=== PATIENT | male | born 2000 | race Caucasian/White ===

== ENCOUNTER 2020-04-15 16:44 | Emergency (ER) | payer OTHER ==
[2020-04-15] MEDS ORDERED: PENICILLIN V POTASSIUM 500 MG TABLET PO ONE (17:22)
--- NOTE | 2020-04-15 17:28 | ER Document Report ---
ED Oral Problem - General Chief Complaint: Mouth Problem Stated Complaint: NECK PAIN/MOUTH PAIN Time Seen by Provider: 04/15/20 17:21 Mode of Arrival: Ambulatory Notes: 20-year-old male presented to ED for discomfort in the throat about this started about 2-1/2 months ago. He states it slowly got better than a week later came back again he was told to use mouthwash. He states he got better and then came back again so he went to a dental clinic and they said it was salivary stones and that it should clear up on its own. He states then the COVID pandemic started and he was signing out of the [employer] and he did not go back into check it. He states a day or 2 ago it started again he now has a swollen area under the right side of his tongue. He states at times is uncomfortable but is is not very painful. He states it does affect his chewing. He states he does have a little swelling to his lymph nodes on the right side. He states he is getting ready to have a baby and is very concerned that he is having throat cancer because he is a former smoker and he did chew tobacco and now is afraid that he is developing a cancer. I did consult Dr. Colon who came and looked at his mouth. He states it did look like a salivary gland that is inside of his mouth. He states sometimes when to go to the dentist they may have to talk to him or problem to get the stones or fluid out. He states he should go back to a dentist and get rechecked. He did recommend antibiotics while in the emergency room and a prescription. - HPI Patient complains to provider of: Other - Swollen gland under the right side of his tongue Onset: Other - See HPI Onset: Gradual - See HPI Quality of pain: Other - Uncomfortable at times Severity: Mild Pain Level: 1 Associated symptoms: Other Worsened by: Other - Gland under the right side of his tongue Relieved by: Nothing Similar symptoms previously: Yes Recently seen / treated by doctor/dentist: No - Related Data Allergies/Adverse Reactions: No Known Allergies Allergy (Verified 04/15/20 17:06) Past Medical History - General Information source: Patient - Social History Smoking Status: Former Smoker - States he is a former smoker and former chewer but no longer smokes or chews tobacco Frequency of alcohol use: None Drug Abuse: None Lives with: Family Family History: Reviewed & Not Pertinent Patient has homicidal ideation: No - Past Medical History Cardiac Medical History: Reports: None Pulmonary Medical History: Reports: None EENT Medical History: Reports: None Neurological Medical History: Reports: None Endocrine Medical History: Reports: None Renal/ Medical History: Reports: None Malignancy Medical History: Reports None GI Medical History: Reports: None Musculoskeletal Medical History: Reports None Skin Medical History: Reports None Psychiatric Medical History: Reports: None Traumatic Medical History: Reports: None Infectious Medical History: Reports: None Surgical Hx: Negative Past Surgical History: Reports: None - Immunizations Immunizations up to date: Yes Hx Diphtheria, Pertussis, Tetanus Vaccination: Yes Review of Systems - Review of Systems Constitutional: No symptoms reported EENT: Mouth pain - Tonsil stones, Other - Swollen gland under his right side of his tongue Cardiovascular: No symptoms reported Respiratory: No symptoms reported Gastrointestinal: No symptoms reported Genitourinary: No symptoms reported Male Genitourinary: No symptoms reported Musculoskeletal: No symptoms reported Skin: No symptoms reported Hematologic/Lymphatic: No symptoms reported Neurological/Psychological: No symptoms reported -: Yes All other systems reviewed and negative Physical Exam - Vital signs Vitals: Temp Pulse Resp BP Pulse Ox 99.7 F 105 H 20 150/90 H 98 04/15/20 17:00 04/15/20 17:00 04/15/20 17:00 04/15/20 17:00 04/15/20 17:00 Interpretation: Normal - General General appearance: Appears well, Alert - HEENT Head: Normocephalic, Atraumatic Eyes: Normal Pupils: PERRL Ears: Normal External canal: Normal Tympanic membrane: Normal Sinus: Normal Nasal: Normal Mouth/Lips: Normal Mucous membranes: Other - On salivary gland under the right side of his tongue multiple tonsil stones Neck: Anterior cervical chain - Respiratory Respiratory status: No respiratory distress Chest status: Nontender Breath sounds: Normal Chest palpation: Normal - Cardiovascular Rhythm: Regular Heart sounds: Normal auscultation Murmur: No - Abdominal Inspection: Normal Distension: No distension Bowel sounds: Normal Tenderness: Nontender Organomegaly: No organomegaly - Back Back: Normal, Nontender - Extremities General upper extremity: Normal inspection, Nontender, Normal color, Normal ROM, Normal temperature General lower extremity: Normal inspection, Nontender, Normal color, Normal ROM, Normal temperature, Normal weight bearing. No: Viridiana's sign - Neurological Neuro grossly intact: Yes Cognition: Normal Orientation: AAOx4 [place] Coma Scale Eye Opening: Spontaneous [place] Coma Scale Verbal: Oriented [place] Coma Scale Motor: Obeys Commands Ashlee Coma Scale Total: 15 Speech: Normal Motor strength normal: LUE, RUE, LLE, RLE Sensory: Normal - Psychological Associated symptoms: Normal affect, Normal mood - Skin Skin Temperature: Warm Skin Moisture: Dry Skin Color: Normal Course - Re-evaluation Re-evalutation: 04/15/20 17:[address] Colon who stated the swollen gland is a salivary gland on the right side under his tongue. He recommended antibiotics and follow-up with ENT or dentist. I have struck the patient please to follow-up with his doctor before he is completely out of the . He stated he would have to go to the hospital to do that I told him that it is recommended that he see a doctor before he gets out of the [place]. He verbalized understanding and agreement with this treatment plan. He was started on penicillin VK at this time. - Vital Signs Vital signs: Temp Pulse Resp BP Pulse Ox 99.7 F 105 H 20 130/80 H 98 04/15/20 17:09 04/15/20 17:00 04/15/20 17:00 04/15/20 17:37 04/15/20 17:00 Discharge - Discharge Clinical Impression: Tonsil stone, Enlarged salivary gland Condition: Stable Disposition: HOME, SELF-CARE Additional Instructions: As you have been told in the emergency room you have tonsil stones and enlarged salivary gland. Please follow-up with your doctor before getting out of the concerning your enlarged salivary gland and your tonsil stones. Tonsil stones, or tonsilloliths, are hard white or yellow formations that are located on or within the tonsils. Its common for people with tonsil stones to not even realize they have them. Tonsil stones arent always easy to see and they can range from rice-sized to the size of a large grape. Tonsil stones rarely cause larger health complications. However, sometimes they can grow into larger formations that can cause your tonsils to swell, and they often have an unpleasant odor. Salt and soda solution 1 quart of water 1 tablespoon of salt 1 teaspoon of baking soda Mixed 3 ingredients together and boil for 1 minute Placed in a covered quart jar Use 1/2 ounce of cold solution to gargle 3 times a day Penicillin VK You have been given a prescription for Penicillin VK. Your physician has determined that this is the best antibiotic for your condition. Pen VK can be taken with meals, however more of the antibiotic gets into the bloodstream if it's taken on an empty stomach. Penicillin usually has no side effects. However, allergy to penicillins is common. If you have had an allergic reaction to any drug of the penicillin family, you should never take any other penicillin. Notify your doctor at once if you develop hives, itching, swelling, faintness, or shortness of breath. FOLLOW-UP CARE: If you have been referred to a physician for follow-up care, call the physicians office for an appointment as you were instructed or within the next two days. If you experience worsening or a significant change in your symptoms, notify the physician immediately or return to the Emergency Department at any time for re-evaluation. Prescriptions: Penicillin V Potassium [Penicillin Vk 500 mg Tablet] 500 mg PO BID #20 tablet Forms: Elevated Blood Pressure
[2020-04-15 17:38] VITALS: BP 130/80
== END 2020-04-15 17:37 | disposition home or self-care (01) ==
LOC: ER 16:44
DX: J35.8 Other chronic diseases of tonsils and adenoids (principal); R59.0 Localized enlarged lymph nodes; Z87.891 Personal history of nicotine dependence
CPT/HCPCS: 99283